=== PATIENT | male | born 1940 | race Caucasian/White ===

== ENCOUNTER 2020-02-18 10:54 | Inpatient (IN) ==
[2020-02-10 13:03] LABS: Basophils # (Auto) 0.04 K/mcL (0.00-0.30); Basophils % (Auto) 0.5 % (0.0-2.0); Eosinophils # (Auto) 0.28 K/mcL (0.00-0.70); Eosinophils % (Auto) 3.6 % (0.0-7.0); Granulocytes % (Auto) 62.2 % (38.0-78.0); Hematocrit 46.9 % (40.1-51.0); Hemoglobin 15.6 g/dL (13.7-17.5); Lymphocytes # (Auto) 1.57 K/mcL (1.50-4.80); Lymphocytes % (Auto) 19.9 % (15.5-49.0); Mean Cell Volume 96.9 fL (80.0-100.0); Mean Corpuscular HGB Conc 33.3 g/dL (31.0-36.0); Mean Platelet Volume 11.2 fL (7.4-10.4); Monocytes # (Auto) 1.09 K/mcL (0.10-0.90); Monocytes % (Auto) 13.8 % (1.0-12.0); Platelet Count 160 K/mcL (140-440); RBC 4.84 M/mcL (4.63-6.08); Red Cell Distribution Width 12.6 % (11.5-14.5); WBC 7.9 K/mcL (4.50-11.00)
[2020-02-10 13:23] LABS: Blood Urea Nitrogen 16 mg/dl (8-23); Calcium 9.6 mg/dl (8.6-10.4); Carbon Dioxide 28 mmol/L (22-30); Chloride 105 mmol/L (96-108); Glomerular Filtration Rate 70; Glucose 128 mg/dL (70-105)
[2020-02-10 13:32] LABS: Appearance,Urine CLEAR; Bacteria,Urine 0 /hpf (0); Bilirubin,Urine NEG (NEG); Color,Urine YELLOW; Culture Indicated,Urine NO; Glucose,Urine (UA) NEGATIVE (NEG); Ketones,Urine NEG (NEG); Leukocyte Esterase,Urine NEG /uL (NEG); Mucus,Urine MOD /hpf (0); Nitrate,Urine NEG (NEG); Protein,Urine 30 mg/dL (NEG); Specific Gravity,Urine 1.023 (1.000-1.035); Urine Blood NEG mg/dL (<0.03); Urine RBC 1 /hpf (0-1); Urine Squamous Epithelial Cell < 1 /hpf (0-4); Urine WBC 4 /hpf (0-4); Urobilinogen,Urine NEG (NEG)
[~2020-02-18 10:54] MED LIST: CELECOXIB 200 MG CAPSULE PO SCH; PREGABALIN 75 MG CAPSULE PO SCH; ceFAZolin 2 GM in DEXTROSE 5% IN WATER 50 ML IV SCH; oxyCODONE 10 MG TAB.ER.12H PO SCH
[2020-02-18] MEDS ORDERED: IPRATROPIUM/ALBUTEROL 3 ML AMPUL.NEB NEB PRN ×3 (11:00→16:44)
[2020-02-18] MEDS ORDERED: SCOPOLAMINE 1 PATCH PATCH TOPICAL PRN (11:00)
[2020-02-18] MEDS ORDERED: KETAMINE 100 MG/ML ML ONE (13:04)
[2020-02-18] MEDS ORDERED: METOPROLOL TARTRATE 5 MG/5 ML VIAL IV ONE (13:04)
[2020-02-18] MEDS ORDERED: fentaNYL 250 MCG/5 ML VIAL IV ONE (13:04)
[2020-02-18] MEDS ORDERED: SUCCINYLCHOLINE 20 MG/ML ML IV ONE (13:04)
[2020-02-18] MEDS ORDERED: LIDOCAINE HCL/PF 100 MG/5 ML SYRINGE IV ONE (13:04)
[2020-02-18] MEDS ORDERED: TRANEXAMIC ACID 1,000 MG/10 ML VIAL IV ONE (13:04)
[2020-02-18] MEDS ORDERED: HYDROmorphone 1 MG/ML SYRINGE ONE (13:04)
[2020-02-18] MEDS ORDERED: PROPOFOL 200 MG/20 ML VIAL IV ONE (13:04)
[2020-02-18] MEDS ORDERED: ONDANSETRON 4 MG/2 ML VIAL ONE (13:04)
[2020-02-18] MEDS ORDERED: DEXAMETHASONE 10 MG/ML VIAL ONE (13:04)
[2020-02-18] MEDS ORDERED: BUPIVACAINE W/EPI 0.5% 50 ML VIAL IJ ONE (14:02)
[2020-02-18] MEDS ORDERED: GENTAMICIN SULFATE 800 MG/20 ML VIAL IR ONE (14:11)
[2020-02-18] MEDS ORDERED: ACETAMINOPHEN 1,000 MG/100 ML BOTTLE IV ONE (14:17)
[2020-02-18] MEDS ORDERED: HYDROmorphone 0.5 MG/0.5 ML SYRINGE IV PRN ×2 (14:17→16:44)
[2020-02-18] MEDS ORDERED: ePHEDrine 50 MG/ML AMPUL IV PRN (14:17)
[2020-02-18] MEDS ORDERED: ONDANSETRON 4 MG/2 ML VIAL IV PRN ×2 (14:17→15:41)
[2020-02-18] MEDS ORDERED: NALOXONE HCL 0.4 MG/ML VIAL IV PRN (14:17)
[2020-02-18] MEDS ORDERED: PROMETHAZINE 25 MG/ML VIAL IV PRN (14:17)
[2020-02-18] MEDS ORDERED: diphenhydrAMINE 50 MG/ML VIAL IV PRN (14:17)
[2020-02-18] MEDS ORDERED: MEPERIDINE 25 MG/ML SYRINGE IV PRN (14:17)
[2020-02-18] MEDS ORDERED: METHOCARBAMOL 1,000 MG/10 ML VIAL IV PRN (14:17)
[2020-02-18] MEDS ORDERED: ATROPINE SULFATE 0.4 MG/ML VIAL IV PRN (14:17)
[2020-02-18] MEDS ORDERED: LACTATED RINGERS 1,000 ML IV SCH ×2 (14:30→16:45)
--- NOTE | 2020-02-18 15:39 | Discharge Plan ---
Discharge Instructions - [facility] Patient Instructions Total Shoulder Protocol: Leave immobilizer in place except for bathing and ROM. Abduction pillow. Continue to wear sling until seen by physician. Codman Pendulum : These exercises use momentum produced by your body to move your shoulder joint. Bend your knees and shift your weight to your front leg, then back, allowing your arm to swing in the same directions. Using the same technique, alternately shift your weight between your right and left legs, allowing your arm to swing from side to side. These exercises are also performed in counterclockwise and clockwise circular motions. Typically these exercises are performed several times per day, for a set number repetitions or minutes, such as 20 times in a row or 5 minutes at a time. Dressing Care: May shower in 2 days Discharge Plan Patient/Caregiver Discharge Instructions Activity: non-weight bearing Diet: Regular Diet Prescriptions: Continued cetirizine 10 MG tablet 10 mg PO DAILY RF: 0 simvastatin 10 MG tablet 10 mg PO HS RF: 0 aspirin 81 MG tablet,delayed release (DR/EC) 81 mg PO DAILY RF: 0 hydrochlorothiazide 25 MG tablet 25 mg PO DAILY RF: 0 losartan 50 mg Tablet 100 mg PO QDAY RF: 0 latanoprost 0.005 % Drops 1 drp OPHTHALMIC (EYE) QPM RF: 0 tamsulosin 0.4 mg Capsule 0.8 mg PO BID RF: 0 montelukast [Singulair] 10 mg Tablet 10 mg PO QHS RF: 0 albuterol sulfate 90 mcg/actuation Hfa Aerosol Inhaler 1 puff INHALATION Q6HP PRN (Reason: SOB) RF: 0 budesonide-formoterol [Symbicort] 160-4.5 mcg/actuation Hfa Aerosol Inhaler 2 puff INHALATION BID RF: 0 Spiriva Respimat 2.5 mcg/actuation Mist 2 puff INHALATION QAM RF: 0 Simbrinza 1-0.2 % Drops,Suspension 1 drp OPHTHALMIC (EYE) BID RF: 0 omeprazole 20 mg Capsule,Delayed Release(Dr/Ec) 20 mg PO BID RF: 0 Discontinued cyanocobalamin (vitamin B-12) [Vitamin B-12] 500 mcg Tablet 1,000 mcg PO QDAY RF: 0 ascorbic acid (vitamin C) [Vitamin C] 500 mg Tablet 500 mg PO QDAY RF: 0 vitamin E 400 unit Capsule 400 unit PO QDAY RF: 0 PreserVision Lutein 226 mg-200 unit -5 mg-0.8 mg Capsule 2 cap PO BID RF: 0 cholecalciferol (vitamin D3) [Vitamin D3] 25 mcg (1,000 unit) Tablet 50 mcg PO QDAY RF: 0 Probiotic 5 billion cell Capsule, Sprinkle 1 cap PO QDAY RF: 0 Follow Up Plan Follow up with: Mars Esquivel PA-C [Physician] - 03/04/20 8:00 am Patient Disposition: Home, Self-Care Rehab Potential: Good I certify that the patient requires SNF services: No Overall status at discharge: patient is progressing back to baseline Discharge Orders: Discharge Order (Routine); Ordered 02/19/20 Ordered By: Jamie Torrez
--- NOTE | 2020-02-18 15:39 | General Surgery Procedure Note ---
Date of procedure: Note initiated : 02/18/20 at 3:34 pm Service Date, if different from initiated Date: [] Pre-op diagnosis: left shoulder osteoarthritis, biceps tendonitis, rtc tear Post-op diagnosis: same Procedure: left reverse total shoulder arthroplasty, biceps tenodesis Grafts/Implants: depuy Anesthesia: GETA Surgeon: Jamie Torrez Sugar Drier: Mars Esquivel Estimated blood loss: 300 Pathology: none sent Condition: stable Disposition: PACU
[2020-02-18] MEDS ORDERED: POLYETHYLENE GLYCOL 3350 17 GM PACKET PO PRN (15:41)
[2020-02-18] MEDS ORDERED: BENZOCAINE/MENTHOL 1 LOZENGE PO PRN (15:41)
[2020-02-18] MEDS ORDERED: BISACODYL 10 MG SUPP.RECT PR PRN (15:41)
[2020-02-18] MEDS ORDERED: MAGNESIUM HYDROXIDE 30 ML ORAL.SUSP PO PRN (15:41)
[2020-02-18] MEDS ORDERED: FLEETS ADULT ENEMA PR PRN (15:41)
[2020-02-18] MEDS ORDERED: TRANEXAMIC ACID 1,000 MG/10 ML VIAL IV SCH (15:41)
[2020-02-18] MEDS ORDERED: ONDANSETRON 4 MG ODT TABLET SL PRN (15:41)
[2020-02-18] MEDS ORDERED: ALBUTEROL SULFATE 200 PUFF INHALER INH PRN (15:43)
[2020-02-18] MEDS: fentaNYL 100 MCG/2 ML VIAL IV PRN ×4 (16:08→16:25)
[2020-02-18] MEDS ORDERED: HYDROmorphone 0.5 MG/0.5 ML SYRINGE IV ONE (16:38)
[2020-02-18] MEDS ORDERED: fentaNYL 100 MCG/2 ML VIAL IV PRN (16:44)
[2020-02-18] MEDS ORDERED: HYDROmorphone 0.5 MG/0.5 ML SYRINGE ONE (16:44)
[2020-02-18] MEDS ORDERED: LORazepam 2 MG/ML VIAL IV ONE (16:45)
--- NOTE | 2020-02-18 17:12 | XRay Report ---
HISTORY: Postop left shoulder arthroplasty FINDINGS: There is a well-positioned reverse shoulder prosthesis. No fractures present. There are couple residual metal anchors along the superior aspect of the glenoid. Most of the anchors were removed at the time of the insertion of the prosthesis. IMPRESSION: Well-positioned left shoulder prosthesis Interpreted and Authenticated by: Earnest Muro 02/18/20
[2020-02-18] MEDS: LACTATED RINGERS 1,000 ML IV SCH (17:14)
[2020-02-18] MEDS: morphine 4 MG/ML VIAL IV PRN ×2 (17:20→20:14)
[2020-02-18] MEDS: oxyCODONE/APAP 5/325MG TABLET PO PRN ×2 (18:04→23:25)
[2020-02-18] MEDS: OMEPRAZOLE 20 MG CAPSULE PO SCH (18:05)
[2020-02-18] MEDS: TAMSULOSIN 0.4 MG CAPSULE PO SCH (20:20)
[2020-02-18] MEDS: ceFAZolin 1 GM VIAL IV SCH (20:21)
[2020-02-18] MEDS: 0.9 % SODIUM CHLORIDE 10 ML SYRINGE IV SCH (20:21)
[2020-02-18] MEDS: DOCUSATE SODIUM 100 MG CAPSULE PO SCH (20:21)
[2020-02-18] MEDS: BRINZOLAMIDE BRIMONIDINE OPHTHALMIC SCH (20:22)
[2020-02-18] MEDS: BUDESONIDE FORMOTEROL INH SCH (20:23)
[2020-02-18] MEDS ORDERED: LATANOPROST OPHTH DROPS 2.5ML BOTTLE OU SCH (21:00)
[2020-02-18] MEDS ORDERED: SIMVASTATIN 10 MG TABLET PO SCH (21:00)
[2020-02-18] MEDS ORDERED: MONTELUKAST 10 MG TABLET PO SCH (21:00)
[2020-02-18] MEDS ORDERED: SENNOSIDES 1 TABLET PO SCH (21:00)
[2020-02-19] MEDS: LACTATED RINGERS 1,000 ML IV SCH ×2 (00:26→08:41)
[2020-02-19] MEDS: morphine 4 MG/ML VIAL IV PRN (01:30)
[2020-02-19] MEDS: METHOCARBAMOL 750 MG TABLET PO PRN ×2 (01:37→08:40)
[2020-02-19] MEDS: ceFAZolin 1 GM VIAL IV SCH (04:55)
[2020-02-19] MEDS: 0.9 % SODIUM CHLORIDE 10 ML SYRINGE IV SCH (04:55)
[2020-02-19] MEDS: oxyCODONE/APAP 5/325MG TABLET PO PRN ×2 (04:55→11:44)
--- NOTE | 2020-02-19 07:34 | Operative Note ---
DATE OF OPERATION: 02/18/2020 PREOPERATIVE DIAGNOSES: 1. Left shoulder severe osteoarthritis. 2. Left shoulder rotator cuff tear of the supraspinatus and calcification with tearing of the infraspinatus tendon and thinning of the subscapularis. 3. Left shoulder proximal biceps tendinitis. POSTOPERATIVE DIAGNOSES: 1. Left shoulder severe osteoarthritis. 2. Left shoulder rotator cuff tear of the supraspinatus and calcification with tearing of the infraspinatus. 3. Left shoulder proximal biceps tendinitis. PROCEDURES: 1. Left reverse total shoulder arthroplasty. 2. Left shoulder proximal biceps tenodesis. SURGEON: Serenity Torrez M.D. SENIOR TECHNICAL PROJECT MANAGER SURGEON: Domenico Hdez M.D. and Nemesio Esquivel PA-C. This provider's expertise and technical skill were required throughout the case. The PA assisted with preoperative coordination, intraoperative retraction, wound closure, dressing and splint application, as well as postoperative documentation and care coordination. ANESTHESIA: General. ESTIMATED BLOOD LOSS: 300 mL COMPLICATIONS: None noted. SPECIMENS REMOVED: None. DRAINS: None. IMPLANTS: DePuy Delta Xtend LYNN coated cementless metaglene; DePuy Delta Xtend locking metaglene screw 4.5 x 30 x1, 4.5 x 24 x2, nonlocking metaglene screw 4.5 x 18 x1; lateralized glenosphere +2 mm, 38 mm standard; DePuy Delta Xtend humeral polyethylene cup 38 +9; DePuy Delta Xtend modular eccentric epiphysis LYNN coated cementless; DePuy Delta Xtend modular humeral stem size 16. INDICATIONS: The patient has had a longstanding history of worsening pain in the shoulder that has failed conservative treatment. Radiographs have confirmed advanced degenerative joint disease and a questionable failed rotator cuff. After a long discussion about treatment options, the patient elected to proceed with a reverse total shoulder arthroplasty. The risks and benefits were discussed with the patient in detail including, but not limited to, the risks of anesthesia, problems with the heart or lungs related to anesthesia, infection, compromise or injury to the nerves and blood vessels, deep venous thrombosis, pulmonary embolism, pneumonia, continued pain after surgery, worsening pain or symptoms after surgery, swelling, loss of motion, instability, fracture, arm length discrepancy, and need for repeat surgery. DESCRIPTION OF PROCEDURE: The patient was seen in the preanesthesia waiting room where all questions were answered and the correct side and site were identified and marked. The patient was transferred to the operating room and administered the anesthetic and given preoperative antibiotics. A time-out was then called. The patient was placed in the modified beach chair position with all prominences well padded. The extremity was prepped and draped from the fingers up to the neck. A standard deltopectoral skin incision was created. Dissection was carried down to the deltopectoral groove and the cephalic vein was isolated medially and retracted laterally with the deltoid. Retractors were placed and the coracobrachialis was split up to the coracoacromial ligament allowing retraction of the conjoined tendon. We split the subscapularis 1 cm medial to the bicipital groove and extended the split into the rotator interval. This was tagged for later repair. The supraspinatus had partial tearing and the infraspinatus was completely calcified with partial tearing and difficulty with mobilization, so I did not feel that we could proceed with a standard total shoulder. They were debrided. The biceps was cut and a soft tissue tenodesis was performed into the anterior shoulder with #2 FiberWire. A capsular release was performed in a posterior subperiosteal direction along the humerus. The humeral head was then dislocated. We established intramedullary access and hand reamed up to get good cortical chatter with the DePuy Delta XTEND reverse total shoulder instrumentation. We then used the intramedullary guide and set to about 5 degrees of retroversion. The proximal humerus cut was performed and osteophytes were removed. A metal protector plate was then placed. Attention was then turned to the glenoid. Retractors were placed for optimal visualization and the labrum was excised in its entirety. A centralizing Steinmann pin was placed just into the posterior inferior quadrant in a standard fashion. We reamed over the pin to remove all the cartilage and get to a good base for the prosthesis. The drill was then placed over for the central peg. A cementless Metaglene was then impacted into place. We then drilled, measured, and placed the four screws starting inferior, then superior, then anterior, and finally posterior. The superior locking screw was lined up at the base of the coracoid process. We then impacted the head onto the Metaglene and tightened down in a standard fashion. Attention was then turned back to the humerus. Proximal reaming was performed off the intramedullary guide into the humeral head, using the eccentric guide to allow best coverage. We again set version and broached up to a stable implant. Trials were placed and good tension, motion, and stability were obtained at this point. Trials were removed and the final press fit femoral prosthesis was impacted into place with measured version. The final polyethylene was placed and the shoulder was reduced and again checked for motion, tension, and stability. We irrigated with 3 liters of antibiotic saline and closed the subscapularis with # 2 FiberWire. We irrigated again and closed the deltopectoral interval with several # 0 Vicryl figure of eight sutures. The subcutaneous layer was closed with 2-0 Vicryl and the skin was closed with 4-0 Monocryl in a subcuticular fashion. A sterile pressure dressing was applied and the patient was placed into an abduction sling. All needle and sponge counts were correct. The patient was transferred to the recovery room in stable condition. JAshley:andrew Job ID: [id number] Doc ID: [id number] Serenity Torrez MD
[2020-02-19] MEDS: OMEPRAZOLE 20 MG CAPSULE PO SCH (07:41)
[2020-02-19 07:47] LABS: Hematocrit 39.4 % (41.0-55.0); Hemoglobin 13.2 g/dL (13.5-16.5)
--- NOTE | 2020-02-19 07:55 | General Surgery Progress Note ---
SUBJECTIVE Subjective Patient information: Note initiated : 02/19/20 at 7:54 am Service Date, if different from initiated Date: [] Patient: Jason García 79 y/o M admitted on 02/18/20 for Left Total Shoulder Arthroplasty Possible Open. Chief Complaint: [] Interval history: painful Constitutional Vitals: Vital Signs Temp Pulse Resp BP Pulse Ox 98.3 F 86 16 150/92 94 02/19/20 04:36 02/19/20 07:27 02/19/20 07:27 02/19/20 04:36 02/19/20 07:27 Period Temp Pulse Resp BP Sys/Cooper Pulse Ox Last 24 Hr 97.5 F-99.0 F 79-103 14-24 124-177/76-115 91-98 Intake and Output 02/18/20 02/19/20 02/19/20 21:59 05:59 13:59 Intake Total 2250 1600 Output Total 400 Balance 1850 1600 Weight 243 lb Intake & Output: Intake & Output 02/18/20 02/19/20 02/19/20 21:59 05:59 13:59 Intake Total 2250 1600 Output Total 400 Balance 1850 1600 Weight 243 lb Intake: IV 100 1000 Lactated Ringers 1,000 ml @ 125 1000 mls/hr IV .Q8H AMY Rx#: [id number] Oral 600 IV - Manual Only 2150 Output: Estimated Blood Loss 400 Other: # Voids 1 Expanded Upper Extremity Exam Shoulder exam: Present swelling and tenderness; Absent crepitus, deformity, dislocation, ecchymosis, erythema and full ROM Neurosensory exam: Present median nerve intact, radial nerve intact and ulnar nerve intact Vascular: Present radial pulse and ulnar pulse; Absent vascular compromise A/P Narrative A/P Narrative: pod #1 s/p tsa nwb pain control PT dvt prophylaxis d/c planning Time Spent With Patient Time: Total time spent is greater than 50% in coordination of care (as documented) at patient's floor/unit and/or counseling patient:
[2020-02-19] MEDS: TAMSULOSIN 0.4 MG CAPSULE PO SCH (08:40)
[2020-02-19] MEDS: DOCUSATE SODIUM 100 MG CAPSULE PO SCH (08:40)
[2020-02-19] MEDS: BUDESONIDE FORMOTEROL INH SCH (08:51)
[2020-02-19] MEDS: BRINZOLAMIDE BRIMONIDINE OPHTHALMIC SCH (08:55)
[2020-02-19] MEDS ORDERED: ASPIRIN 81 MG TAB.CHEW PO SCH (09:00)
[2020-02-19] MEDS ORDERED: LOSARTAN 50 MG TABLET PO SCH (09:00)
[2020-02-19] MEDS ORDERED: HYDROCHLOROTHIAZIDE 25 MG TABLET PO SCH (09:00)
[2020-02-19] MEDS ORDERED: CETIRIZINE 10 MG TABLET PO SCH (09:00)
[2020-02-19] MEDS ORDERED: TIOTROPIUM BROMIDE 18 MCG INHALANT INH SCH (09:00)
[2020-02-19] MEDS ORDERED: HYDROmorphone 0.5 MG/0.5 ML SYRINGE IV PRN (12:19)
== END 2020-02-19 12:00 | disposition home or self-care (01) | DRG 483 ==
LOC: MEDSUR 10:54
PROVIDERS: ADMIT Orthopaedic Surgery Sports Medicine; ATTEND Orthopaedic Surgery Sports Medicine